=== PATIENT | female | born 1940 | race African-American/Black ===

== ENCOUNTER 2019-01-31 09:51 | Inpatient (IN) | payer MEDICARE, OTHER ==
[~2019-01-31] VITALS: Ht 142.2 cm; Wt 61.7 kg
[2019-01-31 09:52] VITALS: BP 203/145
[2019-01-31] MEDS ORDERED: NORVASC5 MG PO (10:04)
[2019-01-31] MEDS ORDERED: VENTOLIN HFA 1818 GM INH (10:04)
[2019-01-31] MEDS ORDERED: VITAMIN D3400 UNIT PO (10:04)
[2019-01-31] MEDS ORDERED: COLACE100 MG PO (10:04)
[2019-01-31] MEDS ORDERED: VITAMINC500 PO (10:04)
[2019-01-31] MEDS ORDERED: PROBIOTIC1 EAC1 PO (10:04)
[2019-01-31] MEDS ORDERED: MSL20MG/ML MISCELL (10:06)
[2019-01-31 10:13] LABS: EOSINOPHILS 0.3 % (0.0-3.0)
[2019-01-31 10:16] LABS: ABSOLUTE NEUTROPHILS 7.1 thou/uL (1.4-8.2); BASOPHILS 0.4 % (0.0-2.0); HEMATOCRIT 35.3 % (37.0-47.0); LYMPHOCYTES 16.4 % (24.0-44.0); MCH 27.2 pg (26.0-34.0); MCHC 31.3 g/dL (28.0-37.0); MCV 86.9 fL (80.0-100.0); MONOCYTES 3.4 % (1.0-8.0); PLATELET COUNT 188 thou/uL (150-400); POLYS 79.5 % (36.0-66.0); RBC 4.06 mil/uL (4.20-5.00); RDW 15.9 % (10.5-14.5); WBC 8.9 thou/uL (4.0-11.0)
[2019-01-31 10:17] LABS: CALCIUM 10.3 mg/dL (8.5-10.1); CREATININE 1.7 mg/dL (0.6-1.0); POTASSIUM 4.4 mmol/L (3.5-5.1)
[2019-01-31 10:26] LABS: TROPONIN-I 0.7 ng/mL (<0.06)
[2019-01-31 10:28] LABS: BE(vivo) -1.3 mmol/L (-2 to +3); HCO3 30.2 mmol/L (22.0-26.0); PO2 186.2 mmHg (80.0-100.0); sO2 98.7 % (92.0-98.0)
[2019-01-31 10:29] LABS: PCO2 96.2 mmHg (35.0-45.0); pH 7.115 (7.360-7.450)
--- NOTE | 2019-01-31 11:37 | EKG ---
[address] [address] ELECTROCARDIOGRAM REPORT Name: VANCE KELLEY Room #: 170-12 ADM IN M.R.#: [id number] ������������������ Admission: 01/31/19 ������������������ Attend Phys: Sarbjit Vargas MD Discharge: ������������������ Date of : 42 Report #: [id number] ����������������������������������������������������������������� [id number] THIS REPORT FOR: //name// [facility] ED Test Date: 2019-01-31 Test Time: 10:04:21 Pat Name: VANCE KELLEY Department: Room: 170 Gender: F Certified Medical Aide: JAMIA : 1940 Requested By: Rabia Bailon Order Number: [id number] MD: Jose Maria Bhakta Measurements Intervals [place] Rate: 135 P: 68 SD: 136 QRS: -90 QRSD: 131 T: 52 QT: 300 QTc: 450 Interpretive Statements Sinus rhythm RBBB and LAFB Artifact in lead(s) I,II,aVR,aVL,aVF,V1,V2,V3,V4,V5,V6 No previous ECG available for comparison Electronically Signed On 01-31-2019 11:37:20 CDT by Jose Maria Bhakta [email or web address] ��������������������������������������������� <ELECTRONICALLY SIGNED> ���������������������������������������� By: Jose Maria Bhakta MD ��������������������������������������������� 01/31/19 1137 1004 1004 Jose Maria Bhakta MD /EPI
[2019-01-31 14:00] VITALS: BP 134/67
--- NOTE | 2019-01-31 14:54 | 2DMMODE ---
[facility] [place] [address] 2 D/M-MODE ECHOCARDIOGRAM Name: VANCE KELLEY Room #: 170-12 ADM IN M.R.#: [id number] ������������� Admission: 01/31/19 ������������� Attend Phys: Sarbjit Vargas MD Discharge: ��� ������������� ��� Date of : 42 Date of Service: 01/31/19 1454 �� Report #: [id number] �������� ��������������������������������������������[id number] THIS REPORT FOR: //name// APPROVED REPORT Study performed: 01/31/2019 14:03:52 EXAM: Comprehensive 2D, Doppler, and color-flow Echocardiogram Patient Location: ER Room #: 12 Status: routine BSA: 1.52 HR: 95 bpm BP: 161/90 mmHg Rhythm: NSR Other Information Study Quality: Adequate Indications COPD Dyspnea Hypertension/HDD 2D Dimensions LVOT Diam: 19.97 (18-24mm) IVC: 21.00 mm Volumes Left Atrial Volume (Systole) Single Plane 4CH: 99.32 mL Single Plane 2CH: 66.33 mL LA ESV Index: 58.00 mL/m2 Aortic Valve AoV Peak Jamaal.: 1.68 m/s AO Peak Gr.: 11.27 mmHg LVOT Max P.51 mmHg LVOT Max V: 1.06 m/s NENO Vmax: 1.98 cm2 Mitral Valve E/A Ratio: 0.7 MV Decel. Time: 251.32 ms MV E Max Jamaal.: 0.86 m/s MV A Jamaal.: 1.26 m/s MV PHT: 72.[address] [facility] [address] [place] [address] 2 D/M-MODE ECHOCARDIOGRAM Name: VANCE KELLEY Room #: 170-12 ADM IN M.R.#: [id number] ������������� Admission: 01/31/19 ������������� Attend Phys: Sarbjit Vargas MD Discharge: ��� ������������� ��� Date of : 42 Date of Service: 01/31/19 1454 �� Report #: [id number] �������� ��������������������������������������������[id number] IVRT: 107.27 ms Pulmonary Valve PV Peak Jamaal.: 1.11 m/s PV Peak Gr.: 4.93 mmHg Pulmonary Vein P Vein S: 0.45 m/s P Vein A: 0.43 m/s P Vein D: 0.61 m/s P Vein A Dur.: 93.4 msec P Vein S/D Ratio: 0.74 Tricuspid Valve TR Peak Jamaal.: 3.72 m/s TR Peak Gr.: 55.47 mmHg PA Pressure: 70.00 mmHg Left Ventricle The left ventricle is normal size. There is hypokinesis in the posterior wall. hypokinesis in the inferior wall. There is normal left ventricular wall thickness. Left ventricular systolic function is moderately decreased. LVEF is 35-40%. Grade I - abnormal relaxation pattern. Right Ventricle The right ventricle is normal size. The right ventricular systolic function is normal. Atria Left atrium is dilated. Right atrium is at the upper limits of normal. Aortic Valve The aortic valve is normal in structure. Aortic valve is calcified. Mild aortic regurgitation. There is no aortic valvular stenosis. Mitral Valve The mitral valve is normal in structure. There is mitral annular calcification. Moderate mitral regurgitation. No evidence of mitral valve stenosis. Tricuspid Valve The tricuspid valve is normal in structure. There is mild tricuspid regurgitation. Estimated PAP 70 mmHg. There is severe pulmonary hypertension. Pulmonic Valve [facility] [address] [place] [address] 2 D/M-MODE ECHOCARDIOGRAM Name: VANCE KELLEY Room #: 170-12 ADM IN M.R.#: [id number] ������������� Admission: 01/31/19 ������������� Attend Phys: Sarbjit Vargas MD Discharge: ��� ������������� ��� Date of : 42 Date of Service: 01/31/19 1454 �� Report #: [id number] �������� ��������������������������������������������[id number] The pulmonary valve is normal in structure. Trace pulmonic regurgitation. Great Vessels The aortic root is normal in size. The inferior vena cava is dilated with no inspiratory collapse. Pericardium There is no pericardial effusion. <Conclusion> The left ventricle is normal size. LVEF is 35-40%. There is hypokinesis in the posterior wall. hypokinesis in the inferior wall. Left atrium is dilated. Right atrium is at the upper limits of normal. The aortic valve is normal in structure. Aortic valve is calcified. The aortic valve is normal in structure. Aortic valve is calcified. Mild aortic regurgitation. The mitral valve is normal in structure. There is mitral annular calcification. Moderate mitral regurgitation. The tricuspid valve is normal in structure. There is mild tricuspid regurgitation. Estimated PAP 70 mmHg. There is severe pulmonary hypertension. The pulmonary valve is normal in structure. Trace pulmonic regurgitation. There is no pericardial effusion. ��������������������������������������������� <ELECTRONICALLY SIGNED> ���������������������������������������� By: Ronan Vazquez MD ��������������������������������������������� 01/31/19 1454 1454 1454 Ronan Vazquez MD /INF
[2019-01-31 16:30] VITALS: BP 147/72
[2019-01-31 19:45] VITALS: BP 153/87
--- NOTE | 2019-01-31 19:47 | NUR ---
PATIENT ADMIT TO UNIT FROM ER AT 1545. ON 80 % BIPAP. RT TAKE HER OFF BIPAP AT 1700. ON 4L/NC. PATIENT A/O X4. SOB WITH EXERTION. DENIES PAIN. 1000ML URINE FROM CORNELIUS CATH AFTER IN LASIX. PATIENT FEELS BETTER WITH BREATHING. SLOWLY TOWARDS POC GOALS.
[2019-01-31 23:25] VITALS: BP 143/69
[2019-02-01 05:34] LABS: HEMATOCRIT 28.9 % (37.0-47.0); HEMOGLOBIN 9.2 gm/dL (12.0-15.0); MCH 27.4 pg (26.0-34.0); MCHC 31.7 g/dL (28.0-37.0); MCV 86.5 fL (80.0-100.0); RBC 3.35 mil/uL (4.20-5.00); RDW 15.9 % (10.5-14.5); WBC 4.3 thou/uL (4.0-11.0)
[2019-02-01 05:46] LABS: CALCIUM 9.4 mg/dL (8.5-10.1); CREATININE 1.6 mg/dL (0.6-1.0); POTASSIUM 4.6 mmol/L (3.5-5.1)
--- NOTE | 2019-02-01 06:28 | NUR ---
PATIENT IS PROGRESSING IN HER CARE PLAN. VITAL SIGNS STABLE WITH PATIENT HAVING NO COMPLAINTS OF PAIN OR NAUSEA. FULLY ORIENTED, PATIENT WAS ABLE TO CALL APPROPRIATELY FOR REQUESTS AND PARTICIPATE IN CARE. BREATHING STABLE ON OXYGEN VIA NASAL CANNULA EVIDENCED BY OXYGEN SATURATION READING IN ACCEPTABLE RANGE. CORNELIUS CATHETER OUTPUT OVER 1000 CC'S. CONTINUE PLAN OF CARE.
[2019-02-01 07:52] VITALS: BP 132/62
[2019-02-01 10:34] LABS: BE(vivo) 9.1 mmol/L (-2 to +3); HCO3 36.1 mmol/L (22.0-26.0); PCO2 62.5 mmHg (35.0-45.0); PO2 79.9 mmHg (80.0-100.0); pH 7.379 (7.360-7.450); sO2 95.2 % (92.0-98.0)
[2019-02-01 11:14] VITALS: BP 126/44
--- NOTE | 2019-02-01 15:35 | NUR ---
ASSESSMENT: CM REVIEWED CHART AND MET WITH PATIENT AT THE BEDSIDE. PT WAS ADMITTED WITH ARF. PT REPORTS SHE LIVES WITH HER DAUGHTER AND GRANDDAUGHTER AND JUST MOVED IN WITH THEM ABOUT 3 WEEKS AGO. PT REPORTS HAVING 1 STEP TO ENTER THE HOME WITH HANDRAILS ON EACH SIDE. PT REPORTS NO STEPS ONCE INSIDE. PT REPORTS SHE HAS A WALKER SHE USES FOR AMBULATION. PT STATES SHE HAS HELP THROUGH HER MEDICAID THROUGH THE WHOLE PERSON WHERE SOMEONE COMES IN 7 DAYS A WEEK FOR 3HRS 45 MINS TO HELP ASSIST HER WITH CHORES/ADLS. PT DENIES HAVING HH. PT STATES SHE HAS NOT BEEN TO A SNF. PT IS CURRENTLY WEARING OXYGEN BUT DOES NOT HAVE IT ARRANGED AT HOME. CM ATTEMPTED TO REACH PATIENTS DAUGHTER MASTER BUT VM WAS LEFT. PT DOOES NOT ANTICIPATE HAVING ANY NEEDS AT DISCHARGE. CM WILL CONTINUE TO FOLLOW TO ASSIST NEEDED.
[2019-02-01 15:51] VITALS: BP 124/58
--- NOTE | 2019-02-01 16:19 | EKG ---
[place] [address] [facility] [place] [address] ELECTROCARDIOGRAM REPORT Name: VANCE KELLEY Room #: 363-P ADM IN M.R.#: [id number] ������������������ Admission: 01/31/19 ������������������ Attend Phys: Sarbjit Vargas MD Discharge: ������������������ Date of : 42 Report #: [id number] ����������������������������������������������������������������� [id number] THIS REPORT FOR: //name// [facility] Test Date: 2019-02-01 Test Time: 14:52:24 Pat Name: VANCE KELLEY Department: Room: 363 Gender: F Investor Relations Specialist: Wali JAFFE : 1940 Requested By: Eugenie Jones Order Number: [id number] MD: Stephen Conley Measurements Intervals [place] Rate: 96 P: 48 [place]: 156 QRS: -91 QRSD: 146 T: 6 QT: 365 QTc: 462 Interpretive Statements Sinus rhythm RBBB and LAFB LVH with secondary repolarization abnormality Baseline wander in lead(s) V1 Compared to ECG 01/31/2019 10:04:21 Left ventricular hypertrophy now present Electronically Signed On 02-01-2019 16:19:03 CDT by Stephen Conley [email or web address] ��������������������������������������������� <ELECTRONICALLY SIGNED> ���������������������������������������� By: Stephen Conley MD ��������������������������������������������� 02/01/19 0269 1452 1452 Stephen Conley MD /EPI
--- NOTE | 2019-02-01 19:38 | NUR ---
PT ALERT AND ORIENTED TIMES FOUR, VSS, 97%2L, SR ON TELE, CORNELIUS TO DD. PT DENIES PAIN/SOA. PT UP TO WITH STANDBY ASSIST. PT TOLERATES MEDS AND MEALS. FAMILY AT BEDSIDE. PT SLOWLY PROGRESSING TOWRADS POC GOALS.
[2019-02-01 19:40] VITALS: BP 130/55
[2019-02-01 20:50] LABS: URINE BILIRUBIN NEGATIVE (Negative); URINE BLOOD TRACE (Negative); URINE CLARITY CLEAR; URINE COLOR YELLOW; URINE GLUCOSE-RANDOM* NEGATIVE (Negative); URINE KETONES NEGATIVE (Negative); URINE LEUKOCYTES NEGATIVE (Negative); URINE NITRITE NEGATIVE (Negative); URINE PROTEIN (DIPSTICK) NEGATIVE (Negative); URINE SPECIFIC GRAVITY 1.015 (1.005-1.035); URINE UROBILINOGEN 0.2 E.U./dl (0.2-1.0)
[2019-02-02 04:30] VITALS: BP 153/80
[2019-02-02 08:09] VITALS: BP 144/65
[2019-02-02 08:32] LABS: POTASSIUM 4.7 mmol/L (3.5-5.1)
[2019-02-02 12:08] VITALS: BP 134/49
--- NOTE | 2019-02-02 13:27 | NUR ---
ON-GOING ASSESSMENT: CM REVIEWED CHART AND SPOKE WITH ATTENDING. PT IS PROGRESSING TOWARDS GOALS. CM MET WITH PATIENT AT THE BEDSIDE AND SHE STATES SHE DOES NOT FEEL SHE NEED HH AT DISCHAGRE AND PLANS ON RETURNING TO HER MOBILE HOME WITH WITH NO NEEDS. PT ALREADY HAS HOME OXYGEN AND DME.
--- NOTE | 2019-02-02 13:29 | NUR ---
ON-GOING ASSESSMENT: CM REVIEWED CHART AND MET WITH PATIENT AT THE BEDSIDE. CM DISCUSSED HH AND RECOMMENDATIONS FOR HH AT DISCHARGE. PT STATING SHE PREFERS TO GO SOMEWHERE FOR THERAPY RATHER THEN HAVE THEM COME IN THE HOME AND HAS BEEN TO [facility] BEFORE. PT STATES SHE DOES NOT WANT HH AT DISCHARGE. PT REPORTS LIVING WITH HER DAUGHTER AND GRANDDAUGHTER AND ONE OF THEM WILL BE ABLE TO PICK HER UP AT DISCHARGE. PT ALSO HAS IN-HOME SERVICES 7DAYS/WK 3.5hrs/day.
--- NOTE | 2019-02-02 15:09 | HC ---
[facility] [place] [address] [place] [address] CONSULTATION Name: VANCE KELLEY Room #: 363-P ADM IN M.R.#: [id number] Admission: 01/31/19 ������������������ Attend Phys: Sarbjit Vargas MD Discharge: ������������������ Date of : 42 Report #: [id number] THIS REPORT FOR: //name// CC: Sarbjit Tyson MD DATE OF SERVICE: 01/31/2019 PULMONARY CONSULTATION REFERRING PHYSICIAN: Sarbjit Vargas MD. PRIMARY CARE PHYSICIAN: Liliana Tyson MD. REASON FOR REFERRAL: Dyspnea and hypoxia. HISTORY OF PRESENT ILLNESS: The patient is a 78-year-old -[place] female who presents to the ED with progressive dyspnea. A pulmonary consultation was requested. The patient states that she has had asthma lifelong. She is currently being followed by company dancer at [facility]. She states she was doing fairly well until around November of this year when she was diagnosed with pneumonia. Ever since then, she has had episodic problem with asthma with progressive dyspnea, etc. Of note, the chest x-ray performed on this admission revealed bilateral interstitial infiltrates. Cardiomegaly is present. Otherwise, denies any sore throat, fever, chest pain, productive cough or hemoptysis. PAST MEDICAL HISTORY: Notable for lifelong history of asthma, history of heart failure, hypertension, arthritis involving cervical spine. ALLERGIES: AMPICILLIN, SULFA, REACTIONS UNSPECIFIED. HOME MEDICATIONS: Ventolin, Norvasc, probiotic, vitamin D supplements, Colace, vitamin C. FAMILY HISTORY: Noncontributory. SOCIAL HISTORY: She denies any tobacco or alcohol use. REVIEW OF SYSTEMS: As mentioned above, otherwise 10-point system review [facility] [address] [place] [address] CONSULTATION Name: VANCE KELLEY Room #: 363-P ADM IN M.R.#: [id number] Admission: 01/31/19 ������������������ Attend Phys: Sarbjit Vargas MD Discharge: ������������������ Date of : 42 Report #: [id number]. PHYSICAL EXAMINATION: GENERAL: She is awake, alert, in no apparent distress. VITAL SIGNS: Temperature is 97.7 degrees Fahrenheit, pulse is 95, respiratory rate is 20, blood pressure 147/72 mmHg, saturation is 94%. HEENT: Normocephalic, atraumatic. Notable for cervical flexion due to arthritic changes. NECK: Supple, no lymphadenopathy or thyromegaly. CHEST: Breath sounds are fair with mild expiratory wheezes. No obvious rales. CARDIOVASCULAR: Normal S1, S2. No murmurs or gallop. There is no JVD. There is no carotid bruit. Pulses are 2+/4+ bilaterally. ABDOMEN: Soft, nontender, no organomegaly or masses felt. GENITOURINARY: Deferred. RECTAL: Deferred. EXTREMITIES: There is no edema, cyanosis or clubbing. LABORATORY DATA: Portable chest x-ray again shows small lung volumes, increased bilateral interstitial markings, some areas of patchy infiltrates, cardiomegaly. Echocardiogram showed ejection fraction 35%, pulmonary artery pressure measured 70 mmHg. There is some evidence of hypokinesis involving the posterior and inferior wall. Left atrium is dilated. Valvular structures unremarkable except for moderate mitral regurgitation. 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 BNP 9600. Electrolytes unremarkable except for creatinine 1.7, bicarbonate is 32. WBC 8900, hemoglobin 12.0, platelets are normal. Troponin 0.7. Arterial blood gas revealed pH 7.11, pCO2 of 96, pO2 186. IMPRESSION: 1. Acute on chronic hypercapnic hypoxic respiratory failure in this 78-year-old -[place] female. Chest x-ray shows bilateral patchy interstitial infiltrates. She has a lifelong history of asthma. She was treated for pneumonia November of this year with subsequent respiratory problems ever since. Etiology is probably due to exacerbation of asthma. It is unclear given the abnormal chest x-ray, whether she has interstitial lung disease such as cryptogenic organizing pneumonia or bronchiolitis obliterans organizing pneumonia. 2. Lifelong history of asthma, exacerbation. 3. Interstitial infiltrates. Given the history as mentioned above, recommend CT chest for further evaluation. 4. Apparent chronic hypercapnic respiratory insufficiency, likely related to underlying severe obstructive lung disease, ? hypoventilation syndrome, ? other processes. 5. Pulmonary hypertension, severe by echocardiogram. This is due to pulmonary impairment along with cardiomyopathy. The patient does not need any therapeutic intervention at this time. [address] [address] CONSULTATION Name: VANCE KELLEY Room #: 363-P [facility] IN M.R.#: [id number] Admission: 01/31/19 ������������������ Attend Phys: Sarbjit Vargas MD Discharge: ������������������ Date of : 42 Report #: [id number] 6. Cardiomyopathy, ejection fraction 35%, etiology of this is unclear without past history of coronary artery disease, ? nonischemic cardiomyopathy, ? etiology? 7. Renal insufficiency, ? acute versus chronic. RECOMMENDATION: Recommend corticosteroids, bronchodilators along with broad spectrum antibiotics. Wean O2 for saturation 90-92% to avoid paradoxical hypercapnia. The patient would benefit from workup for possible hypoventilation syndrome. She has been followed by her company dancer at [facility], we will defer for now. We will order a CT chest regarding possible interstitial lung disease. DVT and GI prophylaxis recommended. Thank you for this consultation. ��������������������������������������������� <ELECTRONICALLY SIGNED> ���������������������������������������� By: Rainer Babin MD ��������������������������������������������� 02/02/19 1509 [id number] 1222 Rainer Babin MD /nt
[2019-02-02 15:40] VITALS: BP 131/52
--- NOTE | 2019-02-02 18:46 | NUR ---
PT ALERT AND ORIENTED TIMES FOUR. VSS. 96%1L, SR ON TELE. PT DNEIES PAIN/SOA. PT TOLERATES MEDS AND MEALS. PT UP WALKING AROUND THE UNIT WITH PT DOING VERY WELL. PT SLOWLY PROGRESSING TOWRADS POC GOALS.
[2019-02-02 19:19] VITALS: BP 134/53
[2019-02-03 04:20] VITALS: BP 155/86
[2019-02-03 05:57] LABS: CALCIUM 9.6 mg/dL (8.5-10.1); CREATININE 1.6 mg/dL (0.6-1.0)
[2019-02-03 06:04] LABS: POTASSIUM 5.5 mmol/L (3.5-5.1)
--- NOTE | 2019-02-03 06:13 | NUR ---
PT MAKING PROGRESS TOWARDS GOALS. SHE STATES THAT SHE IS BREATHING MUCH EASIER THAN WHEN ADMITTED TO THE HOSPITAL. ON ROOM AIR UPON INITIAL ASSESSMENT. PT WEARING O2 AT 1L PER NC OVERNIGHT. UP TO TOILET WITH WALKER. NO SOA NOTED WITH THIS ACTIVITY.
[2019-02-03] MEDS ORDERED: PREDNISONE 10 M10 M1 PO (08:01)
[2019-02-03] MEDS ORDERED: LASIX 40 MG TAB40 M2 PO (08:01)
[2019-02-03] MEDS ORDERED: COREG6.25 MG PO (08:08)
[2019-02-03] MEDS ORDERED: COZAAR 25 MG TA25 M1 PO (08:08)
[2019-02-03 08:09] VITALS: BP 146/65
[2019-02-03] MEDS ORDERED: BAYER CHEWABLE81 MG PO (08:17)
[2019-02-03 11:19] VITALS: BP 159/82
[2019-02-03 12:34] VITALS: BP 159/82
== END 2019-02-03 12:56 | disposition home or self-care (01) | DRG 291 ==
LOC: ER 09:51 → 3W 11:03 → EROBS 11:03 → 3W 16:17
PROVIDERS: Emergency Medicine; Internal Medicine Pulmonary Disease; ADMIT Hospitalist
PROC: 5A09357 Assistance with Respiratory Ventilation, Less than 24 Consecutive Hours, Continuous Positive Airway Pressure (ICD-10-PCS; principal; 2019-01-31)
DX: I13.0 Hypertensive heart and chronic kidney disease with heart failure and stage 1 through stage 4 chronic kidney disease, or unspecified chronic kidney disease (principal); I50.23 Acute on chronic systolic (congestive) heart failure; J96.21 Acute and chronic respiratory failure with hypoxia; J96.22 Acute and chronic respiratory failure with hypercapnia; I16.1 Hypertensive emergency; J81.1 Chronic pulmonary edema; E87.2 Acidosis; N18.4 Chronic kidney disease, stage 4 (severe); J84.116 Cryptogenic organizing pneumonia; J45.901 Unspecified asthma with (acute) exacerbation; J44.0 Chronic obstructive pulmonary disease with (acute) lower respiratory infection; I42.9 Cardiomyopathy, unspecified; I27.20 Pulmonary hypertension, unspecified; M19.90 Unspecified osteoarthritis, unspecified site; D64.9 Anemia, unspecified; E87.70 Fluid overload, unspecified; K59.00 Constipation, unspecified; Z88.1 Allergy status to other antibiotic agents; Z88.2 Allergy status to sulfonamides; Z82.49 Family history of ischemic heart disease and other diseases of the circulatory system; Z83.6 Family history of other diseases of the respiratory system
CPT/HCPCS: 10879